=== PATIENT | female | born 1980 | race Caucasian/White ===

== ENCOUNTER 2016-12-15 07:33 | Day surgery (SDC) | payer OTHER ==
[~2016-12-15 07:33] MED LIST: Lactated Ringers 1,000 ML IV SCH; Lidocaine 1%/Sod Bicarbonate in NS 8.4% 1 ML Syringe PRN; Sodium Chloride 0.9% 10 ML Syringe FLUSH PRN
--- NOTE | 2016-12-15 08:29 | PCM.PREANE ---
Preanesthetic Assessment - Anesthesia/Transfusion/Family Hx Anesthesia History: Prior Anesthesia Without Reaction (CTR) Family History of Anesthesia Reaction: No Transfusion History: No Prior Transfusion(s) Intubation History: Unknown - Review of Systems General: No Symptoms Pulmonary: No Symptoms (quit smoking 07/04/16) Cardiovascular: No Symptoms (history of pleurisy in 2014), Lightheadedness Gastrointestinal: No Symptoms Neurological: No Symptoms (GERD), Numbness (bilateral hand numbness), Seizure ( as a child, none since the age of 5) Other: Reports: Anxiety - Physical Assessment NPO Status Date: 12/14/16 NPO Status Time: 22:30 Pulse: 63 O2 Sat by Pulse Oximetry: 96 Respiratory Rate: 16 Blood Pressure: 138/69 Temperature: 36.4 C Height: 1.63 m Weight: 105.687 kg ASA Class: 2 Mental Status: Alert & Oriented x3 Airway Class: Mallampati = 2 Dentition: Reports: Normal Dentition, Caries Thyro-Mental Finger Breadths: 3 Mouth Opening Finger Breadths: 3 ROM/Head Extension: Full Lungs: Clear to Auscultation, Normal Respiratory Effort Cardiovascular: Regular Rate, Regular Rhythm - Lab Values: Laboratory Last Values Urine HCG, Qual Negative (NEGATIVE) 12/15/16 07:55 labs reviewed and noted and within acceptable ranges to proceed with scheduled procedure. - Allergies Allergies/Adverse Reactions: Allergies Allergy/AdvReac Type Severity Reaction Status Date / Time animal dander Allergy Cannot Verified 12/12/16 08:56 Remember sulfamethoxazole Allergy Cannot Verified 12/12/16 08:56 [From Bactrim] Remember trimethoprim [From Bactrim] Allergy Cannot Verified 12/12/16 08:56 Remember - Anesthesia Plan Pre-Op Medication Ordered: None - Acknowledgements Anesthesia Type Planned: MAC Pt an Appropriate Candidate for the Planned Anesthesia: Yes Alternatives and Risks of Anesthesia Discussed w Pt/Guardian: Yes Pt/Guardian Understands and Agrees with Anesthesia Plan: Yes PreAnesthesia Questionnaire - Past Health History Medical/Surgical History: Denies Medical/Surgical History Gastrointestinal History: Reports: Other (See Below) Other Gastrointestinal History: LUQ pain - Past Surgical History Musculoskeletal Surgical History: Reports: Carpal Tunnel - SUBSTANCE USE Smoking Status *Q: Former Smoker Recreational Drug Use History: No - HOME MEDS Home Medications: Home Meds Omeprazole 20 mg PO BID 12/12/16 [History] Sucralfate [Carafate] 1 gm PO TID 12/12/16 [History] - CURRENT (IN HOUSE) MEDS Current Meds: Current Medications Lactated Ringer's (Ringers, Lactated) 1,000 mls @ 125 mls/hr IV ASDIRECTED BRYN Stop: 12/15/16 23:00 Last Admin: 12/15/16 08:15 Dose: 125 mls/hr Lidocaine/Sodium Bicarbonate (Buffered Lidocaine 1% In Ns 8.4%) 0.25 ml .XX ONETIME PRN PRN Reason: Prior to IV Start Stop: 12/15/16 18:00 Last Admin: 12/15/16 08:15 Dose: 0.25 ml Sodium Chloride (Saline Flush) 10 ml FLUSH ASDIRECTED PRN PRN Reason: Keep Vein Open Stop: 12/15/16 18:00
[2016-12-15] MEDS ORDERED: fentaNYL 100 MCG/2 ML SDV ONE (08:48)
[2016-12-15] MEDS ORDERED: Propofol 200 MG/20 ML SDV ONE (08:48)
--- NOTE | 2016-12-15 09:17 | PCM.OPNOTE ---
- General Post-Op/Procedure Note Date of Surgery/Procedure: 12/15/16 Operative Procedure(s): EGD with bx Pre Op Diagnosis: LUQ abdominal pain Post-Op Diagnosis: Same Anesthesia Technique: MAC Primary Surgeon: Colin Espinal EBL in mLs: 0 Complications: None Condition: Good
--- NOTE | 2016-12-15 09:20 | PCM48HPAN ---
Post Anesthesia Note - EVALUATION WITHIN 48HRS OF ANESTHETIC Vital Signs in Normal Range: Yes Patient Participated in Evaluation: Yes Respiratory Function Stable: Yes Airway Patent: Yes Cardiovascular Function Stable: Yes Hydration Status Stable: Yes Pain Control Satisfactory: Yes Nausea and Vomiting Control Satisfactory: Yes Mental Status Recovered: Yes
[2016-12-15 09:40] VITALS: BP 134/72
--- NOTE | 2016-12-15 12:10 | OR ---
DATE OF OPERATION: 12/15/2016 SURGEON: Colin Espinal MD PREOPERATIVE DIAGNOSIS: Chronic pain in the left upper quadrant. POSTOPERATIVE DIAGNOSIS: Chronic pain in the left upper quadrant. OPERATION PERFORMED: Esophagogastroduodenoscopy with biopsy. ANESTHESIA: Done under IV sedation. FINDINGS: There were some erythematous areas in the antrum, which were biopsied. The fundus was not visible as was the cardia because of the insufflation there, was continuously expelled by the patient. The second portion of the duodenum, duodenal bulb, and pyloric channel were normal. The body of the stomach did not show any pathology. GE junction was located at 40 cm, did not appreciate a hiatal hernia, and the GE junction was free of any acute disease. Balance of the esophagus did not show any pathology. DESCRIPTION OF PROCEDURE: The patient was taken to the operating room, placed in a supine position, connected to monitoring equipment, given IV sedation, placed in a left lateral position, and bite block was inserted. Video Olympus gastroscope was placed in a posterior oropharynx under direct vision and threaded past the cricopharyngeus, down the esophagus, and into the stomach. The stomach was insufflated as much as possible. The scope was passed through the pylorus to the second portion of the duodenum. The duodenal bulb and pyloric channel were carefully viewed as the scope was withdrawn. The antrum was insufflated along with the body of stomach showing erythematous spots, which were photographed. These were biopsied looking for H. pylori. J-maneuver, because of the patient's abdominal girth, was unable to see the fundus or the cardia. The scope was withdrawn to this area and viewed as much as possible, did not see any pathology, and could not appreciate technically a hiatal hernia. The GE junction was located at 40 cm and did not show any acute pathology. The rest of the esophagus was viewed as the scope withdrawn and was normal. The patient tolerated the procedure, sent to recovery room in a stable condition, and will be followed up in the clinic. Specimen sent to Pathology in a labeled container. ESTIMATED BLOOD LOSS: MMODAL /[id number]
== END 2016-12-15 08:46 | disposition home or self-care (01) ==
LOC: JD.SDS 07:33
PROVIDERS: ATTEND Surgery
PROC: 0DB68ZX Excision of Stomach, Via Natural or Artificial Opening Endoscopic, Diagnostic (ICD-10-PCS; principal; 2016-12-15)
DX: K29.50 Unspecified chronic gastritis without bleeding (principal); K25.9 Gastric ulcer, unspecified as acute or chronic, without hemorrhage or perforation; Z87.891 Personal history of nicotine dependence; Z88.2 Allergy status to sulfonamides; Z91.048 Other nonmedicinal substance allergy status; Z79.899 Other long term (current) drug therapy; Z98.890 Other specified postprocedural states
CPT/HCPCS: 43239; 81025; 88305; J3010; J7120; 00740; J2704